=== PATIENT | female | born 1995 | race Caucasian/White ===

== ENCOUNTER → 2017-01-13 | Outpatient (CLI) | payer OTHER | LOC: EMI 14:22 | DX: H91.90 Unspecified hearing loss, unspecified ear (principal); G43.909 Migraine, unspecified, not intractable, without status migrainosus ==

== ENCOUNTER 2021-06-29 17:38 | Emergency (ER) | payer OTHER ==
[~2021-06-29 17:38] MED LIST: BENTYL 20MG TAB20 MG PO; FLORASTOR250 MG PO; ZOFRAN ODT 4 MG4 MG SL
[2021-06-29 18:44] LABS: RED BLOOD COUNT 4.62 M/UL (4.00-5.10); WHITE BLOOD COUNT 12.9 K/UL (4.5-11.0)
[2021-06-29 19:10] LABS: BUN/CREATININE RATIO 15 (0-10)
== END 2021-06-29 20:32 | disposition home or self-care (01) ==
LOC: ER1 17:38
PROVIDERS: Family Medicine
DX: O9A.212 Injury, poisoning and certain other consequences of external causes complicating pregnancy, second trimester (principal); R10.9 Unspecified abdominal pain; M54.50 Low back pain, unspecified; W19.XXXA Unspecified fall, initial encounter; Z3A.24 24 weeks gestation of pregnancy; Z88.0 Allergy status to penicillin
CPT/HCPCS: 76815; 80053; 81001; 83690; 85025; 86900; 86901; 99284